=== PATIENT | female | born 1965 | race Caucasian/White ===

== ENCOUNTER → 2020-08-06 | Outpatient (CLI) | payer OTHER ==
[~2020-08-06] MED LIST: AMLODIPINE BESY10 MG PO; ECOTRIN81 MG PO; GABAPENTIN600 MG PO; GLYBURIDE5 MG PO; ISOSORBIDE DINI30 MG PO; LIPITOR80 MG PO; LISINOPRIL20 MG PO; METOPROLOL SUCC25 MG PO; NORCO 7.5-3251 EACH PO
== END ==
LOC: CATH 07:11
DX: R07.89 Other chest pain (principal); R94.39 Abnormal result of other cardiovascular function study; I20.0 Unstable angina; I10 Essential (primary) hypertension; E11.9 Type 2 diabetes mellitus without complications; E78.5 Hyperlipidemia, unspecified; Z79.82 Long term (current) use of aspirin; Z82.49 Family history of ischemic heart disease and other diseases of the circulatory system; Z79.84 Long term (current) use of oral hypoglycemic drugs; Z79.899 Other long term (current) drug therapy
CPT/HCPCS: 71045; 82962; 99152; C1769; C1894; J1644; J2250; J7030; Q9967